=== PATIENT | female | born 1990 | race African-American/Black ===

== ENCOUNTER 2016-10-15 14:01 | Emergency (ER) | payer SELFPAY ==
[~2016-10-15] VITALS: Ht 167.6 cm; Wt 100.0 kg
[2016-10-15 14:20] VITALS: BP 110/64
== END 2016-10-15 21:23 | disposition left against medical advice (07) ==
LOC: ER 14:51
DX: Z53.21 Procedure and treatment not carried out due to patient leaving prior to being seen by health care provider (principal)